=== PATIENT | female | born 2000 | race Hispanic/Latino ===

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

== ENCOUNTER 2023-05-23 12:21 | Emergency (ER) | payer MEDICAID ==
[~2023-05-23] VITALS: Ht 154.9 cm; Wt 56.7 kg
[~2023-05-23 12:21] MED LIST: CYCL10TA16 PO; CYCL5TAB PO; KETO10TA2 PO; NAPR-1180 PO; RIZA-7 PO
[2023-05-23 12:38] VITALS: BP 150/90; PULSE 117; RESP 22
[2023-05-23] MEDS ORDERED: IBUPROFEN 600 MG TABLET PO ONE (13:30)
[2023-05-23] MEDS ORDERED: PREDNISONE 20 MG TABLET PO ONE (13:30)
[2023-05-23] MEDS ORDERED: BUTALB/ACETAMINOPHEN/CAFFEINE 1 EACH TABLET PO SCH (13:30)
[2023-05-23] MEDS ORDERED: IBUP-2070 PO (15:14)
[2023-05-23] MEDS ORDERED: FIORIT PO (15:14)
== END 2023-05-23 15:20 | disposition home or self-care (01) ==
LOC: EDH 12:21
DX: G44.209 Tension-type headache, unspecified, not intractable (principal); G43.909 Migraine, unspecified, not intractable, without status migrainosus; Z79.52 Long term (current) use of systemic steroids